=== PATIENT | male | born 1960 | race Caucasian/White ===

== ENCOUNTER 2020-03-24 08:33 | Inpatient (IN) ==
[2020-03-24] MEDS ORDERED: ALBUTEROL SULFATE/IPRATROPIUM 3 ML NEBU IH ONE ×2 (08:43→09:06)
[2020-03-24] MEDS ORDERED: METHYLPREDNISOLONE SOD SUCC/PF 40 MG/ML VIAL IV ONE (08:43)
[2020-03-24] MEDS ORDERED: ALBUTEROL SULFATE 5 MG/ML BTL IH ONE (09:00)
--- NOTE | 2020-03-24 09:01 | ERNOTE ---
Dyspnea - Date Date of Service: 03/24/20 - General Presenting Symptoms: difficulty of breathing Time Seen by Provider: 03/24/20 08:42 Source: patient, EMS Exam Limitations: clinical condition - He is too short of breath to answer questions. He refuses to answer most. - Immun/Allergies/Home Medications Allergies/Adverse Reactions: Allergies anti-thymocyte globulin, rabbit [lymphocyte immune globulin,rabbit] Allergy (Verified 03/24/20 09:01) Penicillins Allergy (Verified 03/24/20 09:01) Home Medications: HOME MEDICATIONS Acyclovir [Zovirax] 200 mg PO BID 03/24/20 [Last Taken Unknown] Albuterol Sulfate [Albuterol Sulfate 2.5 MG/0.5ML] 1 vial IH TID 03/24/20 [Last Taken Unknown] Azithromycin 250 mg PO MOWEFR 03/24/20 [Last Taken Unknown] Metoprolol Tartrate [Lopressor] 12.5 mg PO BID 03/24/20 [Last Taken Unknown] Omeprazole 20 mg PO BID 03/24/20 [Last Taken Unknown] Tacrolimus 1.5 mg PO QPM 03/24/20 [Last Taken Unknown] Tacrolimus 2 mg PO QAM 03/24/20 [Last Taken Unknown] predniSONE [Prednisone] 7.5 mg PO DAILY 03/24/20 [Last Taken Unknown] - History of Present Illness Narrative: This patient is a 59-year-old male who arrived by ambulance with shortness of breath. He has a history of lung transplant in 2011. He refuses to answer most questions He reportedly got worse a couple days ago. Today, he could not catch his breath at rest. He used a nebulizer this morning. He came in by ambulance. He did not get a treatment in route. His saturations were good. He denies fever or other cold symptoms. He denies chest pain. Review of Systems - Narrative Narrative: He gets angry and refuses to answer questions but the ones he does answer are negative. - Review of Systems All Other Systems: All systems neg except as marked Medical History (Last Reviewed 03/24/20 @ 09:07 by Scott Hong MD) Lung fibrosis Surgical History: Surgical History (Last Reviewed 03/24/20 @ 09:07 by Scott Hong MD) Lung transplant recipient Family History: Family History (Last Reviewed 03/24/20 @ 09:07 by Scott Hong MD) Other No pertinent family history Social History: (Last Reviewed 03/24/20 @ 09:07 by Scott Hong MD) Tobacco: Smoking Status: Former smoker Alcohol: alcohol intake: former Substance Use: substance use type: does not use Physical Exam - Physical Exam General Appearance: Present: alert, severe distress - He appears to be air hungry and short of breath., anxious, thin Head Exam: Present: normal inspection, no evidence of injury Eye Exam: Normal inspection: bilateral Ears, Nose, Throat: Present: normal ENT inspection Neck: Present: normal inspection, supple Respiratory: Present: respiratory distress, decreased breath sounds, wheezing Cardiovascular/Chest: Present: regular rate, rhythm - Difficult to hear over his breathing noises. Gastrointestinal/Abdominal: Present: normal bowel sounds, nontender, nondistended, soft, no organomegaly Back Exam: Present: normal inspection, normal range of motion Extremity Exam: Present: normal inspection, non-tender, no edema Neurological Exam: Present: alert, normal mood/affect - Angry, but appropriate for the situation. Skin Exam: Present: normal color, warm/dry Progress - Date and Time Seen: Date and Time: 03/24/20 09:11 The patient arrived and appeared to be quite irritable. He was wheezing. After a short time, he became agitated and appeared to be headed for respiratory arrest. He had already made clear that he did not want intubated. He was given breathing treatments and improved. 03/24/20 12:06 The patient prefers being at this hospital, if able I spoke with Dr. Aaron and then I spoke with Dr. Cobos at the [facility]. She felt that he could be treated here. She suggested getting another sputum culture and covering him for his recent pneumonia. I spoke with Dr. Aaron again he accepted the patient. 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 He has not a candidate for intubation. - Results and Orders Patient's Lab Results:: I have reviewed the patient's lab results. Results and Orders: Laboratory Tests 03/24/20 03/24/20 03/24/20 09:04 09:04 09:04 WBC 11.3 H RBC 5.40 Hgb 16.6 Hct 51.8 MCV 95.9 MCH 30.7 MCHC 32.0 RDW 15.6 H Plt Count 206 MPV 9.8 Immature Gran % (Auto) 0.50 H Immature Gran # (Auto) 0.06 H Neutrophils % 69.9 Lymphocytes % 10.8 L Monocytes % 11.8 H Eosinophils % 6.3 H Basophils % 0.7 Nucleated RBC % 0.0 Neutrophils # 7.9 H Lymphocytes # 1.22 L Monocytes # 1.3 H Eosinophils # 0.7 Absolute Basophils 0.1 pCO2 pO2 HCO3 Total CO2 Base Excess ABG pH ABG O2 Sat (Measured) Sodium 138 Plasma Sodium 138 Potassium 4.1 Chloride 103 Carbon Dioxide 27.1 Anion Gap 12.0 BUN 43 H Creatinine 2.18 H Est GFR (Non-Af Amer) 33 L BUN/Creatinine Ratio 19.7 Random Glucose 106 Calcium 10.1 Calcium Adj for Albumin 10.3 H Total Bilirubin 0.5 AST 23 ALT 18 L Alkaline Phosphatase 91 Troponin I Less than 0.017 Total Protein 8.6 H Albumin 3.4 SARS-CoV-2 (PCR) Not detected 03/24/20 10:07 WBC RBC Hgb Hct MCV MCH MCHC RDW Plt Count MPV Immature Gran % (Auto) Immature Gran # (Auto) Neutrophils % Lymphocytes % Monocytes % Eosinophils % Basophils % Nucleated RBC % Neutrophils # Lymphocytes # Monocytes # Eosinophils # Absolute Basophils pCO2 47.6 pO2 89.0 HCO3 24.9 Total CO2 26.4 H Base Excess -1.4 ABG pH 7.34 L ABG O2 Sat (Measured) 96.2 Sodium Plasma Sodium Potassium Chloride Carbon Dioxide Anion Gap BUN Creatinine Est GFR (Non-Af Amer) BUN/Creatinine Ratio Random Glucose Calcium Calcium Adj for Albumin Total Bilirubin AST ALT Alkaline Phosphatase Troponin I Total Protein Albumin SARS-CoV-2 (PCR) - Vital Signs Patient's Vital Signs:: I have reviewed the patient's vital signs. 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
[2020-03-24] MEDS ORDERED: ALBUTEROL SULFATE 2.5 MG/0.5 ML VIAL.NEB IH ONE (09:09)
[2020-03-24 09:17] LABS: Hematocrit 51.8 % (42.0-52.0); Hemoglobin 16.6 gm/dL (13.5-18.0); Mean Cell Volume 95.9 fl (78-100); Mean Corpuscular Hemoglobin 30.7 pg (27-31); Mean Platelet Volume 9.8 fl (8-11.3); Neutrophil # 7.9 K/mm3 (1.3-6.0); Neutrophil % 69.9 % (42-75.0); Platelet Count 206 K/mm3 (150-450); Red Cell Distribution Width 15.6 % (11.5-14.0); White Blood Count 11.3 K/mm3 (4.0-10.5)
[2020-03-24 09:37] LABS: ALT 18 U/L (19-67); AST 23 U/L (0-48); Albumin * 3.4 gm/dl (3.4-5.0); Alkaline Phosphatase * 91 U/L (50-170); BUN/Creatinine Ratio 19.7 (9.0-21.6); Bilirubin, Total 0.5 mg/dL (0.0-1.1); Blood Urea Nitrogen 43 mg/dL (6-23); Ca. Corrected For Albumin 10.3 mg/dL (8.4-10.2); Calcium * 10.1 mg/dL (7.9-10.9); Carbon Dioxide 27.1 mmol/L (24-32.6); Chloride 103 mmol/L (97-106); Glucose * 106 mg/dL (70-110); Potassium 4.1 mmol/L (3.4-4.6); Sodium 138 mmol/L (132-142); Total Protein 8.6 gm/dL (6.2-8.2)
[2020-03-24 09:42] LABS: Troponin I Less than 0.017 ng/mL (0.00-0.10)
[2020-03-24] MEDS ORDERED: CEFEPIME HCL 1 GM/100 ML BAG IV ONE ×2 (10:24→10:31)
[2020-03-24] MEDS ORDERED: AZITHROMYCIN 250 MG TABLET PO ONE (10:24)
[2020-03-24] MEDS ORDERED: LEVOFLOXACIN IN DEXTROSE 5 % 750 MG/150 ML BAG IV ONE (11:57)
[2020-03-24] MEDS ORDERED: ACETAMINOPHEN 500 MG TABLET PO PRN (14:24)
[2020-03-24] MEDS ORDERED: FLUOCINONIDE 15 APPL TUBE TP PRN (14:24)
[2020-03-24] MEDS ORDERED: SODIUM CHLORIDE IJ SCH (14:30)
--- NOTE | 2020-03-24 14:48 | HP ---
Chief Complaint - Chief Complaint Date of Service: 03/24/20 Time of Service: 14:15 Chief Complaint: Cough with shortness of breath History of Present Illness: Tod Clinton is a nearly 61-year-old male patient who was admitted to the [facility] on March 08 and discharged on March 16. He is a bilateral lung transplant for idiopathic pulmonary fibrosis which occurred on 11/14/2011. He was admitted there for complications of lung transplant, airway infection, and pneumonia. Starting in early February is when he began feeling poorly with the main symptoms being dyspnea and increasing MROGAN. 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 He also has chronic cytomegalic virus. His bronchiolitis obliterans is end-stage and he is not an intubation candidate. Medical History (Last Reviewed 03/24/20 @ 13:35 by Heath Soriano RN) History of COPD Hx of gastroesophageal reflux (GERD) Hx of primary hypertension Lung fibrosis Surgical History: Surgical History (Last Reviewed 03/24/20 @ 13:35 by Heath Soriano RN) Lung transplant recipient Family History: Family History (Last Reviewed 03/24/20 @ 13:35 by Heath Soriano RN) Other No pertinent family history Social History: (Last Reviewed 03/24/20 @ 13:35 by Heath Soriano RN) Tobacco: Smoking Status: Former smoker Alcohol: alcohol intake: former Substance Use: substance use type: does not use Review Of Systems (GEN) - Review of Systems Generalized/Overall Review: Present: Weakness EENTM: Present: No Symptoms Reported Respiratory: Present: Cough, Shortness of Breath, Wheezing Cardiac: Present: No Symptoms Reported Abdominal: Present: No Symptoms Reported Genitourinary: Present: No Symptoms Reported Musculoskeletal: Present: No Symptoms Reported Neurological: Present: No Symptoms Reported Skin: Present: No Symptoms Reported Endocrine: Present: No Symptoms Reported Misc: All systems neg except as marked Immunizations: IMMUNIZATION HX Immunizations Up to Date Yes History of Influenza Vaccine Yes Hx Pneumococcal Vaccination Yes Allergies/Adverse Reactions: Allergies Allergy/AdvReac Type Severity Reaction Status Date / Time anti-thymocyte globulin, Allergy Verified 03/24/20 09:01 rabbit [lymphocyte immune globulin,rabbit] Penicillins Allergy Verified 03/24/20 09:01 Home Medications: HOME MEDICATIONS 0.9 % Sodium Chloride [Sodium Chloride 0.9%] 3 ml IJ Q12H 03/24/20 [Last Taken Unknown] Acetaminophen [Tylenol] 1,000 mg PO Q6H PRN 03/24/20 [Last Taken Unknown] Acyclovir [Zovirax] 200 mg PO BID 03/24/20 [Last Taken Unknown] Albuterol Sulfate [Albuterol Sulfate 2.5 MG/0.5ML] 1 vial IH BID 03/24/20 [Last Taken Unknown] Albuterol Sulfate [Albuterol Sulfate 2.5 MG/0.5ML] 1 vial IH QID PRN 03/24/20 [Last Taken Unknown] Azithromycin 250 mg PO MOWEFR 03/24/20 [Last Taken Unknown] Colistin (Colistimethate Na) [Colistimethate] 150 mg IJ Q12H 03/24/20 [Last Taken Unknown] Ferrous Gluconate [Iron] 65 mg PO DAILY 03/24/20 [Last Taken Unknown] Fluocinonide [Lidex 0.05%] 1 appl TP QPM PRN 03/24/20 [Last Taken Unknown] Fluticasone Propion/Salmeterol [Fluticasone-Salmeterol 500-50] 1 ea IH Q12H 03/24/20 [Last Taken Unknown] Immune Globul G/Gly/Iga Avg 46 [Gamunex-C] 35 gm IV Q30D 03/24/20 [Last Taken 03/21/20] Ketoconazole [Nizoral Shampoo] 1 appl TP DAILY 03/24/20 [Last Taken Unknown] Metoprolol Tartrate [Lopressor] 12.5 mg PO BID 03/24/20 [Last Taken Unknown] Omeprazole 20 mg PO BID 03/24/20 [Last Taken Unknown] Pentamidine Isethionate [Nebupent] 300 mg IH Q30D 03/24/20 [Last Taken Unknown] Polyethylene Glycol 3350 [Miralax] 17 gm PO BID 03/24/20 [Last Taken Unknown] Tacrolimus 1 mg PO QPM 03/24/20 [Last Taken Unknown] Tacrolimus 2 mg PO QAM 03/24/20 [Last Taken Unknown] predniSONE [Prednisone] 5 mg PO DAILY 03/24/20 [Last Taken Unknown] Exam - Exam Vital Signs: Vital Signs - Last Taken Temp 36.5 C 03/24/20 13:18 Pulse 92 12/03/20 13:18 Resp 26 H 03/24/20 13:18 BP 128/82 03/24/20 13:18 Pulse Ox 98 03/24/20 13:18 Constitutional: Present: Alert, Oriented x3, Cooperative, Well developed, Well nourished, Mild distress ENT Exam: Present: normal ENT inspection, hearing grossly normal, pharynx normal, TMs normal Eye Exam: bilateral eye: normal inspection, PERRL, EOMI Neck: Present: non-tender, full range of motion, supple, normal inspection Back Exam: Present: normal inspection, no CVA tenderness, no vertebral tenderness Breasts: Present: Exam deferred Respiratory: Present: chest non-tender, decreased breath sounds, No wheezing Cardiovascular/Chest: Present: normal peripheral pulses, no chest tenderness, no edema, no gallop, no JVD, no murmur, tachycardia Peripheral Pulses: carotid (R): 2+, carotid (L): 2+, radial (R): 2+, radial (L): 2+ Abdomen: Present: Normal bowel sounds, soft, nontender, nondistended, no rebound tenderness, no hepatospenomegaly, no masses /Rectal: Present: Exam deferred Extremity: Present: normal range of motion, non-tender, normal inspection, no pedal edema, no calf tenderness, normal capillary refill Skin Exam: Present: normal color, warm/dry, no cyanosis Lymphatic: Present: no adenopathy Neurologic: Present: 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 nml as tested, normal cerebellar test, no motor/sensory deficits, alert, normal mood/affect, oriented x 3 Appearance: Present: appropriate appearance, appropriate insight, neat, no memory impairment Eye contact: Present: cooperative, good eye contact, normal speech, avoids eye contact Thoughts: Present: normal thought pattern, no apparent hallucination Diagnostic Studies: Abnormal Lab Results 03/24/20 03/24/20 03/24/20 Range/Units 09:04 09:04 10:07 WBC 11.3 H (4.0-10.5) K/mm3 RDW 15.6 H (11.5-14.0) % Immature Gran % (Auto) 0.50 H (0.001-0.429) % Immature Gran # (Auto) 0.06 H (0.000-0.0310) K/mm3 Lymphocytes % 10.8 L (20-51) % Monocytes % 11.8 H (0.0-9) % Eosinophils % 6.3 H (0.0-3.0) % Neutrophils # 7.9 H (1.3-6.0) K/mm3 Lymphocytes # 1.22 L (1.5-3.5) k/mm3 Monocytes # 1.3 H (0.0-1.0) k/mm3 Total CO2 26.4 H (19.0-24.0) mmol/L ABG pH 7.34 L (7.35-7.45) BUN 43 H (6-23) mg/dL Creatinine 2.18 H (0.4-1.4) mg/dL Est GFR (Non-Af Amer) 33 L (60-130) mL/min Calcium Adj for Albumin 10.3 H (8.4-10.2) mg/dL ALT 18 L (19-67) U/L Total Protein 8.6 H (6.2-8.2) gm/dL Laboratory Results WBC 11.3 K/mm3 (4.0-10.5) H 03/24/20 09:04 RBC 5.40 M/mm3 (4.7-6.0) 03/24/20 09:04 Hgb 16.6 gm/dL (13.5-18.0) 03/24/20 09:04 Hct 51.8 % (42.0-52.0) 03/24/20 09:04 MCV 95.9 fl (78-100) 03/24/20 09:04 MCH 30.7 pg (27-31) 03/24/20 09:04 MCHC 32.0 g/dl (32-36) 03/24/20 09:04 RDW 15.6 % (11.5-14.0) H 03/24/20 09:04 Plt Count 206 K/mm3 (150-450) 03/24/20 09:04 MPV 9.8 fl (8-11.3) 03/24/20 09:04 Immature Gran % (Auto) 0.50 % (0.001-0.429) H 03/24/20 09:04 Immature Gran # (Auto) 0.06 K/mm3 (0.000-0.0310) H 03/24/20 09:04 Neutrophils % 69.9 % (42-75.0) 03/24/20 09:04 Lymphocytes % 10.8 % (20-51) L 03/24/20 09:04 Monocytes % 11.8 % (0.0-9) H 03/24/20 09:04 Eosinophils % 6.3 % (0.0-3.0) H 03/24/20 09:04 Basophils % 0.7 % (0.0-1.0) 03/24/20 09:04 Nucleated RBC % 0.0 k/mm3 (0-1) 03/24/20 09:04 Neutrophils # 7.9 K/mm3 (1.3-6.0) H 03/24/20 09:04 Lymphocytes # 1.22 k/mm3 (1.5-3.5) L 03/24/20 09:04 Monocytes # 1.3 k/mm3 (0.0-1.0) H 03/24/20 09:04 Eosinophils # 0.7 k/mm3 (0.0-0.7) 03/24/20 09:04 Absolute Basophils 0.1 k/mm3 (0.0-0.1) 03/24/20 09:04 pCO2 47.6 mmHg (35.0-48.0) 03/24/20 10:07 pO2 89.0 mmHg (83.0-108.0) 03/24/20 10:07 HCO3 24.9 mmol/L (21.0-28.0) 03/24/20 10:07 Total CO2 26.4 mmol/L (19.0-24.0) H 03/24/20 10:07 Base Excess -1.4 mmol/L (-2.0-3.0) 03/24/20 10:07 ABG pH 7.34 (7.35-7.45) L 03/24/20 10:07 ABG O2 Sat (Measured) 96.2 % (94.0-98.0) 03/24/20 10:07 Sodium 138 mmol/L (132-142) 03/24/20 09:04 Plasma Sodium 138 mmol/L (130-142) 03/24/20 09:04 Potassium 4.1 mmol/L (3.4-4.6) 03/24/20 09:04 Chloride 103 mmol/L (97-106) 03/24/20 09:04 Carbon Dioxide 27.1 mmol/L (24-32.6) 03/24/20 09:04 Anion Gap 12.0 mmol/L (6.8-13.8) 03/24/20 09:04 BUN 43 mg/dL (6-23) H 03/24/20 09:04 Creatinine 2.18 mg/dL (0.4-1.4) H 03/24/20 09:04 Est GFR (Non-Af Amer) 33 mL/min (60-130) L 03/24/20 09:04 BUN/Creatinine Ratio 19.7 (9.0-21.6) 03/24/20 09:04 Random Glucose 106 mg/dL (70-110) 03/24/20 09:04 Lactic Acid, Venous 1.2 mmol/L (0.4-2.0) 03/24/20 09:55 Calcium 10.1 mg/dL (7.9-10.9) 03/24/20 09:04 Calcium Adj for Albumin 10.3 mg/dL (8.4-10.2) H 03/24/20 09:04 Total Bilirubin 0.5 mg/dL (0.0-1.1) 03/24/20 09:04 AST 23 U/L (0-48) 03/24/20 09:04 ALT 18 U/L (19-67) L 03/24/20 09:04 Alkaline Phosphatase 91 U/L (50-170) 03/24/20 09:04 Troponin I Less than 0.017 ng/mL (0.00-0.10) 03/24/20 09:04 Total Protein 8.6 gm/dL (6.2-8.2) H 03/24/20 09:04 Albumin 3.4 gm/dl (3.4-5.0) 03/24/20 09:04 SARS-CoV-2 (PCR) Not detected (NotDetected) 03/24/20 09:04
[2020-03-24] MEDS: FLUTICASONE PROPION/SALMETEROL 14 PUFF DISK.W.DEV IH SCH ×2 (15:33→20:24)
[2020-03-24] MEDS: ENOXAPARIN SODIUM 40 MG/0.4 ML SYRG SC SCH (15:33)
[2020-03-24] MEDS ORDERED: TACROLIMUS ANHYDROUS 0.5 MG CAPSULE PO SCH (17:00)
[2020-03-24] MEDS: DOXYCYCLINE HYCLATE 100 MG in DEXTROSE 5 % IN WATER 100 ML IV SCH ×2 (17:29)
[2020-03-24] MEDS: ALBUTEROL SULFATE 2.5 MG/0.5 ML VIAL.NEB IH SCH ×2 (17:50→18:06)
[2020-03-24] MEDS: PANTOPRAZOLE SODIUM 20 MG TABLET.DR PO SCH (20:24)
[2020-03-24] MEDS: TACROLIMUS ANHYDROUS 0.5 MG CAPSULE PO SCH (20:24)
[2020-03-24] MEDS: POLYETHYLENE GLYCOL 3350 17 GM PACKET PO SCH (20:25)
[2020-03-24] MEDS: ACYCLOVIR 200 MG CAPSULE PO SCH (20:25)
[2020-03-24] MEDS: METOPROLOL TARTRATE 25 MG TABLET PO SCH (20:25)
[2020-03-24] MEDS: CEFEPIME HCL 1 GM in DEXTROSE 5 % IN WATER 100 ML IV SCH ×2 (22:25)
[2020-03-25] MEDS: DOXYCYCLINE HYCLATE 100 MG in DEXTROSE 5 % IN WATER 100 ML IV SCH ×4 (04:46→17:06)
[2020-03-25] MEDS: ALBUTEROL SULFATE 2.5 MG/0.5 ML VIAL.NEB IH SCH ×4 (06:01→18:28)
[2020-03-25 06:59] LABS: Hemoglobin 15.2 gm/dL (13.5-18.0); Mean Cell Volume 93.8 fl (78-100); Mean Corpuscular Hemoglobin 30.3 pg (27-31); Mean Corpuscular Hgb Conc 32.3 g/dl (32-36); Mean Platelet Volume 9.4 fl (8-11.3); Neutrophil # 5.8 K/mm3 (1.3-6.0); Neutrophil % 84.3 % (42-75.0); Platelet Count 202 K/mm3 (150-450); Red Blood Count 5.01 M/mm3 (4.7-6.0); Red Cell Distribution Width 15.1 % (11.5-14.0); White Blood Count 6.9 K/mm3 (4.0-10.5)
[2020-03-25 07:06] LABS: Albumin * 3.1 gm/dl (3.4-5.0); BUN/Creatinine Ratio 23.8 (9.0-21.6); Bilirubin, Total 0.4 mg/dL (0.0-1.1); Ca. Corrected For Albumin 9.9 mg/dL (8.4-10.2); Calcium * 9.5 mg/dL (7.9-10.9); Carbon Dioxide 24.2 mmol/L (24-32.6); Potassium 4.2 mmol/L (3.4-4.6); Total Protein 8.1 gm/dL (6.2-8.2)
[2020-03-25] MEDS: PANTOPRAZOLE SODIUM 20 MG TABLET.DR PO SCH ×2 (07:16→20:15)
--- NOTE | 2020-03-25 08:55 | PN ---
Subjective - Date and Time Seen Date: 03/25/20 Time: 07:30 Objective - Review of Systems Generalized/Overall Review: Reports: No Symptoms Reported EENTM: Reports: No Symptoms Reported Respiratory: Reports: Cough, Shortness of Breath - With minor exertion. He has been weaned off of his oxygen through much of the night but has 2 L nasal cannula O2 on this morning due to dyspnea. Cardiac: Reports: No Symptoms Reported Abdominal: Reports: No Symptoms Reported Genitourinary Symptoms: Reports: No Symptoms Reported Musculoskeletal Complaints: Reports: No Symptoms Reported Neurological: Reports: No Symptoms Reported Skin: Reports: No Symptoms Reported Endocrine: Reports: No Symptoms Reported - Vitals Vitals: Last Vital Signs Temp 36.5 C 03/25/20 07:11 Pulse 94 03/25/20 07:11 Resp 22 H 03/25/20 07:11 BP 131/85 03/25/20 07:11 Pulse Ox 98 03/25/20 07:11 - Abnormal Lab Findings Abnormal Lab Findings: Abnormal Lab Results 03/24/20 03/24/20 03/24/20 Range/Units 09:04 09:04 10:07 WBC 11.3 H (4.0-10.5) K/mm3 RDW 15.6 H (11.5-14.0) % Immature Gran % (Auto) 0.50 H (0.001-0.429) % Immature Gran # (Auto) 0.06 H (0.000-0.0310) K/mm3 Neutrophils % (42-75.0) % Lymphocytes % 10.8 L (20-51) % Monocytes % 11.8 H (0.0-9) % Eosinophils % 6.3 H (0.0-3.0) % Neutrophils # 7.9 H (1.3-6.0) K/mm3 Lymphocytes # 1.22 L (1.5-3.5) k/mm3 Monocytes # 1.3 H (0.0-1.0) k/mm3 Total CO2 26.4 H (19.0-24.0) mmol/L ABG pH 7.34 L (7.35-7.45) Anion Gap (6.8-13.8) mmol/L BUN 43 H (6-23) mg/dL Creatinine 2.18 H (0.4-1.4) mg/dL Est GFR (Non-Af Amer) 33 L (60-130) mL/min BUN/Creatinine Ratio (9.0-21.6) Random Glucose (70-110) mg/dL Calcium Adj for Albumin 10.3 H (8.4-10.2) mg/dL ALT 18 L (19-67) U/L Total Protein 8.6 H (6.2-8.2) gm/dL Albumin (3.4-5.0) gm/dl 03/25/20 03/25/20 Range/Units 06:30 06:30 WBC (4.0-10.5) K/mm3 RDW 15.1 H (11.5-14.0) % Immature Gran % (Auto) 0.60 H (0.001-0.429) % Immature Gran # (Auto) 0.04 H (0.000-0.0310) K/mm3 Neutrophils % 84.3 H (42-75.0) % Lymphocytes % 6.5 L (20-51) % Monocytes % (0.0-9) % Eosinophils % (0.0-3.0) % Neutrophils # (1.3-6.0) K/mm3 Lymphocytes # 0.45 L (1.5-3.5) k/mm3 Monocytes # (0.0-1.0) k/mm3 Total CO2 (19.0-24.0) mmol/L ABG pH (7.35-7.45) Anion Gap 15.0 H (6.8-13.8) mmol/L BUN 50 H (6-23) mg/dL Creatinine 2.10 H (0.4-1.4) mg/dL Est GFR (Non-Af Amer) 34 L (60-130) mL/min BUN/Creatinine Ratio 23.8 H (9.0-21.6) Random Glucose 132 H (70-110) mg/dL Calcium Adj for Albumin (8.4-10.2) mg/dL ALT 16 L (19-67) U/L Total Protein (6.2-8.2) gm/dL Albumin 3.1 L (3.4-5.0) gm/dl - EKG/Xray Findings XRAY: chest Interpretation: Reviewed by me - Exam Constitutional: Present: Alert, Oriented x3, Cooperative, Well developed, Well nourished ENT Exam: Present: normal ENT inspection, hearing grossly normal, pharynx normal, TMs normal Neck: Present: non-tender, full range of motion, supple Breasts: Present: Exam deferred, Nontender Respiratory: Present: chest non-tender, rhonchi, No wheezing Cardiovascular/Chest: Present: normal peripheral pulses, regular rate, rhythm, no chest tenderness, no edema, no gallop, no JVD, no murmur, no rub Abdomen: Present: Normal bowel sounds, soft, nontender, nondistended, no rebound tenderness, no hepatospenomegaly, no masses /Rectal: Present: Exam deferred Extremity: Present: normal range of motion Skin Exam: Present: normal color, warm/dry, no cyanosis Lymphatic: Present: no adenopathy Neurologic: Present: 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 He states he does not want to be discharged until the pneumonia is completely cleared but most likely he will need to go home and finish on p.o. antibiotics.
[2020-03-25] MEDS: FERROUS SULFATE 325 MG TABLET PO SCH (09:50)
[2020-03-25] MEDS: METOPROLOL TARTRATE 25 MG TABLET PO SCH ×2 (09:51→20:12)
[2020-03-25] MEDS: POLYETHYLENE GLYCOL 3350 17 GM PACKET PO SCH ×2 (09:52→20:13)
[2020-03-25] MEDS: predniSONE 5 MG TABLET PO SCH (09:52)
[2020-03-25] MEDS: ACYCLOVIR 200 MG CAPSULE PO SCH ×2 (09:53→20:16)
[2020-03-25] MEDS: TACROLIMUS ANHYDROUS 0.5 MG CAPSULE PO SCH ×2 (09:53→20:15)
[2020-03-25] MEDS ORDERED: RACEPINEPHRINE HCL 0.5 ML VIAL IH ONE (11:00)
[2020-03-25] MEDS: CEFEPIME HCL 1 GM in DEXTROSE 5 % IN WATER 100 ML IV SCH ×4 (11:29→23:23)
[2020-03-25] MEDS: KETOCONAZOLE APPL TP SCH (13:55)
[2020-03-25] MEDS: ENOXAPARIN SODIUM 40 MG/0.4 ML SYRG SC SCH (14:46)
[2020-03-25] MEDS: FLUTICASONE PROPION/SALMETEROL 14 PUFF DISK.W.DEV IH SCH ×2 (17:24→20:11)
[2020-03-26] MEDS: DOXYCYCLINE HYCLATE 100 MG in DEXTROSE 5 % IN WATER 100 ML IV SCH ×4 (05:10→16:30)
[2020-03-26] MEDS: ALBUTEROL SULFATE 2.5 MG/0.5 ML VIAL.NEB IH SCH ×4 (06:24→20:02)
[2020-03-26 06:57] LABS: Hematocrit 49.1 % (42.0-52.0); Hemoglobin 15.9 gm/dL (13.5-18.0); Mean Cell Volume 94.1 fl (78-100); Mean Corpuscular Hemoglobin 30.5 pg (27-31); Mean Corpuscular Hgb Conc 32.4 g/dl (32-36); Mean Platelet Volume 10.4 fl (8-11.3); Neutrophil # 6.4 K/mm3 (1.3-6.0); Neutrophil % 79.2 % (42-75.0); Platelet Count 153 K/mm3 (150-450); Red Blood Count 5.22 M/mm3 (4.7-6.0); Red Cell Distribution Width 15.5 % (11.5-14.0); White Blood Count 8.1 K/mm3 (4.0-10.5)
[2020-03-26 07:02] LABS: Total Cells Counted 100
[2020-03-26 07:11] LABS: Albumin * 3.2 gm/dl (3.4-5.0); Anion Gap 13.3 mmol/L (6.8-13.8); BUN/Creatinine Ratio 24.3 (9.0-21.6); Bilirubin, Total 0.5 mg/dL (0.0-1.1); Ca. Corrected For Albumin 10.4 mg/dL (8.4-10.2); Calcium * 10.1 mg/dL (7.9-10.9); Carbon Dioxide 27.1 mmol/L (24-32.6); Potassium 4.4 mmol/L (3.4-4.6); Total Protein 8.1 gm/dL (6.2-8.2)
[2020-03-26] MEDS: PANTOPRAZOLE SODIUM 20 MG TABLET.DR PO SCH ×2 (07:22→20:39)
[2020-03-26 08:33] LABS: Eosinophil 3 % (0-3); Lymphocyte 12 % (20-51); Monocyte 9 % (0-9); Neutrophil 76 % (42-75); Neutrophil # 6.2 K/mm3 (1.3-6.0); Platelet Estimate Normal (NORMAL); RBC Morphology Normal (NORMAL)
[2020-03-26] MEDS: FLUTICASONE PROPION/SALMETEROL 14 PUFF DISK.W.DEV IH SCH ×2 (08:34→20:36)
[2020-03-26] MEDS: METOPROLOL TARTRATE 25 MG TABLET PO SCH ×2 (08:35→20:37)
[2020-03-26] MEDS: FERROUS SULFATE 325 MG TABLET PO SCH (08:35)
[2020-03-26] MEDS: predniSONE 5 MG TABLET PO SCH (08:36)
[2020-03-26] MEDS: KETOCONAZOLE APPL TP SCH (08:36)
[2020-03-26] MEDS: POLYETHYLENE GLYCOL 3350 17 GM PACKET PO SCH ×2 (08:36→20:35)
[2020-03-26] MEDS: TACROLIMUS ANHYDROUS 0.5 MG CAPSULE PO SCH ×2 (08:37→20:37)
[2020-03-26] MEDS: ACYCLOVIR 200 MG CAPSULE PO SCH ×2 (08:37→20:39)
[2020-03-26] MEDS: CEFEPIME HCL 1 GM in DEXTROSE 5 % IN WATER 100 ML IV SCH ×4 (10:45→23:06)
[2020-03-26] MEDS: ENOXAPARIN SODIUM 40 MG/0.4 ML SYRG SC SCH (14:07)
--- NOTE | 2020-03-26 14:37 | PN ---
Subjective - Date and Time Seen Date: 03/26/20 Time: 13:40 Subjective Narrative: Mr. Clinton says that he had a good restful night. He has slept without oxygen. His oxygen saturation has been near 100% on room air. However, he still gets very dyspneic quickly with minor exertion. He is reluctant to even walk to the bathroom and back because it takes him 15 minutes to recover. He is wanting to be transferred to the [facility] and I have started working on that but he would be a nonemergent admission and transfer and I doubt that there will be any room availability through the weekend. I reviewed his lab work with him which shows normalization of his white count, other labs essentially normal except for renal status. His vital signs are stable and he is afebrile. The chest x-ray this morning shows significant interval improvement. He lives alone at home and does not want to consider home oxygen. In fact he is refusing to use oxygen here even for short walking to the bathroom and back. He refuses oxygen test through ambulation today. He does appear to be responding well to cefepime and doxycycline. I will continue those until he gets transferred. Objective - Review of Systems Generalized/Overall Review: Reports: No Symptoms Reported, Weakness EENTM: Reports: No Symptoms Reported Respiratory: Reports: Shortness of Breath Cardiac: Reports: No Symptoms Reported Abdominal: Reports: No Symptoms Reported Genitourinary Symptoms: Reports: No Symptoms Reported Musculoskeletal Complaints: Reports: No Symptoms Reported Neurological: Reports: Emotional Problems - He seems to be fearful and anxious about his respiratory status. He is irritable and difficult to discuss his current status. Skin: Reports: No Symptoms Reported Endocrine: Reports: No Symptoms Reported - Vitals Vitals: Last Vital Signs Temp 36.3 C 03/26/20 10:43 Pulse 87 03/26/20 10:43 Resp 20 03/26/20 10:43 BP 126/98 H 03/26/20 10:43 Pulse Ox 100 03/26/20 10:43 - Abnormal Lab Findings Abnormal Lab Findings: Abnormal Lab Results 03/26/20 03/26/20 Range/Units 06:45 06:45 RDW 15.5 H (11.5-14.0) % Neutrophils % 79.2 H (42-75.0) % Neutrophils % (Manual) 76 H (42-75) % Lymphocytes % 8.6 L (20-51) % Lymphocytes % (Manual) 12 L (20-51) % Monocytes % 9.7 H (0.0-9) % Neutrophils # 6.4 H (1.3-6.0) K/mm3 Neutrophils # (Manual) 6.2 H (1.3-6.0) K/mm3 Lymphocytes # 0.69 L (1.5-3.5) k/mm3 Lymphocytes # (Manual) 1.0 L (1.5-3.5) k/mm3 BUN 46 H (6-23) mg/dL Creatinine 1.89 H (0.4-1.4) mg/dL Est GFR (Non-Af Amer) 39 L (60-130) mL/min BUN/Creatinine Ratio 24.3 H (9.0-21.6) Calcium Adj for Albumin 10.4 H (8.4-10.2) mg/dL ALT 17 L (19-67) U/L Albumin 3.2 L (3.4-5.0) gm/dl - EKG/Xray Findings EKG read: Reviewed by me XRAY: chest Interpretation: Reviewed by me - Exam Constitutional: Present: Alert, Oriented x3, Cooperative, Well developed, Well nourished, No distress - Except when he is walking. ENT Exam: Present: normal ENT inspection Neck: Present: non-tender Breasts: Present: Exam deferred Respiratory: Present: chest non-tender, rhonchi Cardiovascular/Chest: Present: normal peripheral pulses, regular rate, rhythm, no chest tenderness, no edema, no gallop, no JVD, no murmur, no rub Abdomen: Present: Normal bowel sounds, soft, nontender, nondistended, no rebound tenderness, no hepatospenomegaly, no masses /Rectal: Present: Exam deferred, External genitalia normal Extremity: Present: normal range of motion, non-tender, normal inspection, no pedal edema, no calf tenderness, normal capillary refill Skin Exam: Present: normal color, warm/dry Lymphatic: Present: no adenopathy Neurologic: Present: mcat instructor II-XII nml as tested Appearance: Present: appropriate appearance Eye contact: Present: cooperative, good eye contact, normal speech Thoughts: Present: normal thought pattern, no apparent hallucination Assessment/Plan Plan Narrative: 1. Continue current therapy for now until or unless he gets transferred. He is refusing discharge. 2. Repeat lab tomorrow morning. 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
[2020-03-27] MEDS: DOXYCYCLINE HYCLATE 100 MG in DEXTROSE 5 % IN WATER 100 ML IV SCH ×4 (05:07→16:34)
[2020-03-27] MEDS: ALBUTEROL SULFATE 2.5 MG/0.5 ML VIAL.NEB IH SCH ×3 (06:11→15:04)
[2020-03-27] MEDS: PANTOPRAZOLE SODIUM 20 MG TABLET.DR PO SCH ×2 (06:25→21:01)
[2020-03-27] MEDS: METOPROLOL TARTRATE 25 MG TABLET PO SCH ×2 (09:30→20:59)
[2020-03-27] MEDS: FLUTICASONE PROPION/SALMETEROL 14 PUFF DISK.W.DEV IH SCH ×2 (09:30→20:59)
[2020-03-27] MEDS: FERROUS SULFATE 325 MG TABLET PO SCH (09:30)
[2020-03-27] MEDS: TACROLIMUS ANHYDROUS 0.5 MG CAPSULE PO SCH ×2 (09:30→20:59)
[2020-03-27] MEDS: POLYETHYLENE GLYCOL 3350 17 GM PACKET PO SCH ×2 (09:30→21:00)
[2020-03-27] MEDS: ACYCLOVIR 200 MG CAPSULE PO SCH ×2 (09:31→21:01)
[2020-03-27] MEDS: KETOCONAZOLE APPL TP SCH (09:31)
[2020-03-27] MEDS: predniSONE 5 MG TABLET PO SCH (09:31)
[2020-03-27] MEDS: CEFEPIME HCL 1 GM in DEXTROSE 5 % IN WATER 100 ML IV SCH ×4 (10:22→23:30)
--- NOTE | 2020-03-27 12:25 | PN ---
Subjective - Date and Time Seen Date: 03/27/20 Time: 11:45 Subjective Narrative: Sleeping and is less dyspneic and walking to the bathroom and back this morning. He is wanting to do a walking oxygen check this morning. I spoke with his developmental electronics assembler/transplant physician at the yesterday. She says that he has severe end-stage bronchiolitis obliterans and that is why he does not have any functional reserve. Bronchodilators will not help much either. She told me that she thought he would 2 years ago but that in spite of multiple admissions and lung infections he has survived at this point. 2 years ago he was placed on hospice but then went home in improved and so he was discharged from hospice. She suggested adding higher dose of prednisone to taper down and a low dose of morphine. He has done those before and they seem to help some. He has no new other problems or complaints today. Lab: The CBC has a normal white count hemoglobin hematocrit and platelet count. The differential is unremarkable. The chemistries show electrolytes are all nor mal. His EGFR has improved each day and is 39 today. Vital signs: He has been afebrile and normotensive. Heart rate has been normal and his respiratory rate is 14 and unlabored with an O2 sats of 99 to 100% on room air. Objective - Review of Systems Generalized/Overall Review: Reports: No Symptoms Reported EENTM: Reports: No Symptoms Reported Respiratory: Reports: Shortness of Breath - With exertion but improved from yesterday Cardiac: Reports: No Symptoms Reported Abdominal: Reports: No Symptoms Reported Genitourinary Symptoms: Reports: No Symptoms Reported Musculoskeletal Complaints: Reports: No Symptoms Reported Neurological: Reports: No Symptoms Reported Skin: Reports: No Symptoms Reported Endocrine: Reports: No Symptoms Reported - Vitals Vitals: Last Vital Signs Temp 36.7 C 03/27/20 10:20 Pulse 80 03/27/20 10:20 Resp 14 03/27/20 10:20 BP 127/77 03/27/20 10:20 Pulse Ox 100 03/27/20 10:20 - Exam Constitutional: Present: Alert, Oriented x3, Cooperative, Well developed, Well nourished, No distress ENT Exam: Present: normal ENT inspection, hearing grossly normal, pharynx normal, TMs normal Neck: Present: non-tender, full range of motion, supple, normal inspection, trachea midline Breasts: Present: Exam deferred Respiratory: Present: chest non-tender, lungs clear, normal breath sounds, no respiratory distress, no accessory muscle use - Unless dyspneic from exertion, respiratory distress - Only with exertion, decreased breath sounds, crackles, rhonchi, wheezing, expiration (prolonged) Cardiovascular/Chest: Present: normal peripheral pulses, regular rate, rhythm, no chest tenderness, no edema, no gallop, no JVD, no murmur, no rub Abdomen: Present: Normal bowel sounds, soft, nontender, no rebound tenderness, no hepatospenomegaly, no masses /Rectal: Present: Exam deferred Extremity: Present: normal range of motion, non-tender, normal inspection, no pedal edema, no calf tenderness, normal capillary refill Skin Exam: Present: normal color, warm/dry, no cyanosis Lymphatic: Present: no adenopathy Neurologic: Present: 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 He seems much less anxious. Appearance: Present: appropriate appearance, appropriate insight, neat Eye contact: Present: cooperative, good eye contact, normal speech Thoughts: Present: normal thought pattern, no apparent hallucination Assessment/Plan Plan Narrative: 1. Add morphine 2. Increase prednisone 3. Repeat morning lab and chest x-ray tomorrow 4. Anticipate discharge to home tomorrow. 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
[2020-03-27] MEDS: MORPHINE SULFATE 10 MG/0.5 ML SYRINGE PO SCH ×2 (13:41→18:35)
[2020-03-27] MEDS: predniSONE 20 MG TABLET PO SCH ×2 (13:42→20:59)
[2020-03-27] MEDS: ENOXAPARIN SODIUM 40 MG/0.4 ML SYRG SC SCH (13:43)
[2020-03-27] MEDS ORDERED: ALBUTEROL SULFATE 2.5 MG/0.5 ML VIAL.NEB IH PRN (15:03)
[2020-03-28] MEDS: MORPHINE SULFATE 10 MG/0.5 ML SYRINGE PO SCH ×3 (01:55→12:46)
[2020-03-28] MEDS: DOXYCYCLINE HYCLATE 100 MG in DEXTROSE 5 % IN WATER 100 ML IV SCH ×2 (04:49)
[2020-03-28 07:00] LABS: Mean Corpuscular Hemoglobin 30.4 pg (27-31); Mean Corpuscular Hgb Conc 32.7 g/dl (32-36); Mean Platelet Volume 9.8 fl (8-11.3); Neutrophil # 6.3 K/mm3 (1.3-6.0); Neutrophil % 92.3 % (42-75.0); Platelet Count 228 K/mm3 (150-450); Red Blood Count 5.27 M/mm3 (4.7-6.0); Red Cell Distribution Width 14.7 % (11.5-14.0); White Blood Count 6.9 K/mm3 (4.0-10.5)
[2020-03-28] MEDS: PANTOPRAZOLE SODIUM 20 MG TABLET.DR PO SCH (07:04)
[2020-03-28 07:12] LABS: Albumin * 3.1 gm/dl (3.4-5.0); Anion Gap 13.5 mmol/L (6.8-13.8); BUN/Creatinine Ratio 27.7 (9.0-21.6); Bilirubin, Total 0.5 mg/dL (0.0-1.1); Calcium * 9.6 mg/dL (7.9-10.9); Carbon Dioxide 24.4 mmol/L (24-32.6); Potassium 4.9 mmol/L (3.4-4.6)
[2020-03-28] MEDS: METOPROLOL TARTRATE 25 MG TABLET PO SCH (08:41)
[2020-03-28] MEDS: TACROLIMUS ANHYDROUS 0.5 MG CAPSULE PO SCH (08:42)
[2020-03-28] MEDS: POLYETHYLENE GLYCOL 3350 17 GM PACKET PO SCH (08:42)
[2020-03-28] MEDS: ACYCLOVIR 200 MG CAPSULE PO SCH (08:42)
[2020-03-28] MEDS: predniSONE 20 MG TABLET PO SCH (08:42)
[2020-03-28] MEDS: KETOCONAZOLE APPL TP SCH (08:42)
[2020-03-28] MEDS: FERROUS SULFATE 325 MG TABLET PO SCH (08:42)
[2020-03-28] MEDS: FLUTICASONE PROPION/SALMETEROL 14 PUFF DISK.W.DEV IH SCH (08:54)
--- NOTE | 2020-03-28 09:35 | DS ---
(1) Infection due to Stenotrophomonas maltophilia Problem: Acute (2) COPD exacerbation Problem: Acute (3) Bronchiolitis obliterans Problem: Acute (4) Lung transplant recipient Problem: Acute (5) MORGAN (dyspnea on exertion) Problem: Acute (6) Pneumothorax Problem: Suspected Qualifiers: Pneumothorax type: spontaneous, primary Qualified Code(s): J93.11 - Primary spontaneous pneumothorax Date of Discharge:: 03/28/20 Hospital Course: Tod Clinton is a 59-year-old male who had a lung transplant in 2011 and has end-stage bronchiolitis obliterans. He has advanced pulmonary fibrosis. He had been at the [facility] for 8 days and then was discharged to home on home inhaled antibiotics. He did not improve. He then presented here very short of breath. He was started on IV cefepime and doxycycline. He improved fairly quickly in terms of his oxygen saturations at rest but would become very dyspneic with minor exertion such as walking from his bed to the bathroom. This then improved on Saturday and was better again on Saturday. The initial chest x-ray showed multilobular infiltrates. Subsequent chest x-ray showed clearing of those. This morning's x-ray does not show any infiltrates but there is the appearance of a 5% right apical pneumothorax with extensive pulmonary fibrosis. Dr. Paul reports there is an est. 5% pneumothorax and recommended a CT scan which I ordered but was refused by Mr. Clinton. He states he will wait and get it done at the . He is now able to ambulate about the room without significant dyspnea. Before he was admitted we contacted the [facility] transplant team and his astrochemist and they stated that they did not have anything to offer him other than what we could do here and they were out of beds anyway so we admitted him here. I talked to his astrochemist again 2 days ago and got further history. At one point he had been on hospice and his astrochemist expected him to a couple years ago but he has survived to this point. His diagnosis for transplant had been cystic fibrosis. He was 51 at that time. His disposition is improved. His prognosis is guarded. Procedures Performed: none Results and Findings: Pending Mircobiology Results 03/24/20 09:55 Blood Blood Culture - Preliminary NO GROWTH AFTER 48 HOURS 03/24/20 09:04 Blood Blood Culture - Preliminary NO GROWTH AFTER 48 HOURS Lab Pending Results 03/24/20 09:04: WBC 11.3 H, RBC 5.40, Hgb 16.6, Hct 51.8, MCV 95.9, MCH 30.7, MCHC 32.0, RDW 15.6 H, Plt Count 206, MPV 9.8, Immature Gran % (Auto) 0.50 H, Immature Gran # (Auto) 0.06 H, Neutrophils % 69.9, Lymphocytes % 10.8 L, Monocytes % 11.8 H, Eosinophils % 6.3 H, Basophils % 0.7, Nucleated RBC % 0.0, Neutrophils # 7.9 H, Lymphocytes # 1.22 L, Monocytes # 1.3 H, Eosinophils # 0.7, Absolute Basophils 0.1 03/24/20 09:04: Sodium 138, Plasma Sodium 138, Potassium 4.1, Chloride 103, Carbon Dioxide 27.1, Anion Gap 12.0, BUN 43 H, Creatinine 2.18 H, Est GFR (Non- Af Amer) 33 L, BUN/Creatinine Ratio 19.7, Random Glucose 106, Calcium 10.1, Calcium Adj for Albumin 10.3 H, Total Bilirubin 0.5, AST 23, ALT 18 L, Alkaline Phosphatase 91, Troponin I Less than 0.017, Total Protein 8.6 H, Albumin 3.4 03/24/20 09:04: SARS-CoV-2 (PCR) Not detected 03/24/20 09:55: Lactic Acid, Venous 1.2 03/24/20 10:07: pCO2 47.6, pO2 89.0, HCO3 24.9, Total CO2 26.4 H, Base Excess -1.4, ABG pH 7.34 L, ABG O2 Sat (Measured) 96.2 03/25/20 06:30: WBC 6.9 D, RBC 5.01, Hgb 15.2, Hct 47.0, MCV 93.8, MCH 30.3, MCHC 32.3, RDW 15.1 H, Plt Count 202, MPV 9.4, Immature Gran % (Auto) 0.60 H, Immature Gran # (Auto) 0.04 H, Neutrophils % 84.3 H, Lymphocytes % 6.5 L, Monocytes % 8.4, Eosinophils % 0.1, Basophils % 0.1, Nucleated RBC % 0.0, Neutrophils # 5.8, Lymphocytes # 0.45 L, Monocytes # 0.6, Eosinophils # 0.0, Absolute Basophils 0.0 03/25/20 06:30: Sodium 140, Plasma Sodium 141, Potassium 4.2, Chloride 105, Carbon Dioxide 24.2, Anion Gap 15.0 H, BUN 50 H, Creatinine 2.10 H, Est GFR (Non-Af Amer) 34 L, BUN/Creatinine Ratio 23.8 H, Random Glucose 132 H, Calcium 9.5, Calcium Adj for Albumin 9.9, Total Bilirubin 0.4, AST 21, ALT 16 L, Alkaline Phosphatase 86, Total Protein 8.1, Albumin 3.1 L 03/26/20 06:45: WBC 8.1, RBC 5.22, Hgb 15.9, Hct 49.1, MCV 94.1, MCH 30.5, MCHC 32.4, RDW 15.5 H, Plt Count 153, MPV 10.4, Immature Gran % (Auto) 0.20, Immature Gran # (Auto) 0.02, Neutrophils % 79.2 H, Neutrophils % (Manual) 76 H, Lymphocytes % 8.6 L, Lymphocytes % (Manual) 12 L, Monocytes % 9.7 H, Monocytes % (Manual) 9, Eosinophils % 2.1, Eosinophils % (Manual) 3, Basophils % 0.2, Nucleated RBC % 0.0, Neutrophils # 6.4 H, Neutrophils # (Manual) 6.2 H, Lymphocytes # 0.69 L, Lymphocytes # (Manual) 1.0 L, Monocytes # 0.8, Monocytes # (Manual) 0.7, Eosinophils # 0.2, Eosinophils # (Manual) 0.2, Absolute Basophils 0.0, Platelet Estimate Normal, RBC Morphology Normal 03/26/20 06:45: Sodium 141, Plasma Sodium 141, Potassium 4.4, Chloride 105, Carbon Dioxide 27.1, Anion Gap 13.3, BUN 46 H, Creatinine 1.89 H, Est GFR (Non- Af Amer) 39 L, BUN/Creatinine Ratio 24.3 H, Random Glucose 104, Calcium 10.1, Calcium Adj for Albumin 10.4 H, Total Bilirubin 0.5, AST 24, ALT 17 L, Alkaline Phosphatase 79, Total Protein 8.1, Albumin 3.2 L 03/28/20 06:45: WBC 6.9, RBC 5.27, Hgb 16.0, Hct 49.0, MCV 93.0, MCH 30.4, MCHC 32.7, RDW 14.7 H, Plt Count 228, MPV 9.8, Immature Gran % (Auto) 0.70 H, Immature Gran # (Auto) 0.05 H, Neutrophils % 92.3 H, Lymphocytes % 4.5 L, Mo nocytes % 2.5, Eosinophils % 0.0, Basophils % 0.0, Nucleated RBC % 0.0, Neutrophils # 6.3 H, Lymphocytes # 0.31 L, Monocytes # 0.2, Eosinophils # 0.0, Absolute Basophils 0.0 03/28/20 06:45: Sodium 137, Plasma Sodium 137, Potassium 4.9 H, Chloride 104, Carbon Dioxide 24.4, Anion Gap 13.5, BUN 49 H, Creatinine 1.77 H, Est GFR (Non- Af Amer) 42 L, BUN/Creatinine Ratio 27.7 H, Random Glucose 130 H, Calcium 9.6, Calcium Adj for Albumin 10.0, Total Bilirubin 0.5, AST 21, ALT 19, Alkaline Phosphatase 86, Total Protein 8.0, Albumin 3.1 L Discharge Location: Home Disposition: Home self-care Condition: Serious Face to Face Encounter completed per [facility] Guidelines: No Discharge Activity: Activity as tolerated Discharge Diet: General/regular food Problem Oriented Discharge Instructions to Patient/Family: Chronic Obstructive Pulmonary Disease Exacerbation, [id number], Community-Acquired Pneumonia, Adult, [id number] Additional Patient Instructions (free text): Keep Pulmonary appointment at [facility] that you already have scheduled for 04/05/2020. Fax chart and discharge information to his Pulmonary DrYeni Villegas please. . Prescriptions (Any new or edited meds): Cefdinir 300 mg PO BID #18 cap Transmission Status: Received by [facility] Doxycycline Monohydrate 100 mg PO BID #18 tab Transmission Status: Received by [facility] Morphine Sulfate [Morphine Sulfate Conc. Oral Solution] 2.5 mg PO Q6H #60 ml Transmission Status: Received by [facility] Complete Home Medications List: Complete Home Medication List: 0.9 % Sodium Chloride [Sodium Chloride 0.9%] 3 ml IJ Q12H 03/24/20 Acetaminophen [Tylenol] 1,000 mg PO Q6H PRN 03/24/20 Acyclovir [Zovirax] 200 mg PO BID 03/24/20 Albuterol Sulfate [Albuterol Sulfate 2.5 MG/0.5ML] 1 vial IH BID 03/24/20 Albuterol Sulfate [Albuterol Sulfate 2.5 MG/0.5ML] 1 vial IH QID PRN 03/24/20 Azithromycin 250 mg PO MOWEFR 03/24/20 Colistin (Colistimethate Na) [Colistimethate] 150 mg IJ Q12H 03/24/20 Ferrous Gluconate [Iron] 65 mg PO DAILY 03/24/20 Fluocinonide [Lidex 0.05% Ointment] 1 appl TP QPM PRN 03/24/20 Fluticasone Propion/Salmeterol [Fluticasone-Salmeterol 500-50] 1 ea IH Q12H 03/24/20 Immune Globul G/Gly/Iga Avg 46 [Gamunex-C 10 Gram/100 ml Vial] 35 gm IV Q30D 03/24/20 Ketoconazole [Nizoral Shampoo] 1 appl TP DAILY 03/24/20 Metoprolol Tartrate [Lopressor] 12.5 mg PO BID 03/24/20 Omeprazole 20 mg PO BID 03/24/20 Pentamidine Isethionate [Nebupent] 300 mg IH Q30D 03/24/20 Polyethylene Glycol 3350 [Miralax] 17 gm PO BID 03/24/20 Tacrolimus 1 mg PO QPM 03/24/20 Tacrolimus 2 mg PO QAM 03/24/20 predniSONE [Prednisone] 5 mg PO DAILY 03/24/20 Cefdinir 300 mg PO BID #18 cap 03/28/20 Doxycycline Monohydrate 100 mg PO BID #18 tab 03/28/20 Morphine Sulfate [Morphine Sulfate Conc. Oral Solution] 2.5 mg PO Q6H #60 ml 03/28/20 predniSONE [Prednisone] 10 mg PO BID #30 tab 03/28/20
[2020-03-28] MEDS: CEFEPIME HCL 1 GM in DEXTROSE 5 % IN WATER 100 ML IV SCH ×2 (11:02)
[2020-03-28 12:44] VITALS: BP 162/103
[2020-04-07] MEDS ORDERED: PENTAMIDINE ISETHIONATE 300 MG IH SCH (09:00)
[2020-04-20] MEDS ORDERED: IGA AVG IV SCH (09:00)
[2020-04-20] MEDS ORDERED: IMMUNE GLOBUL IV SCH (09:00)
[2020-04-20] MEDS ORDERED: GLY IV SCH (09:00)
== END 2020-03-28 13:05 | disposition home or self-care (01) | DRG 205 ==
LOC: ER 08:33 → MS 12:14
PROVIDERS: ADMIT Family Medicine; ATTEND Family Medicine
DX: B96.89 Other specified bacterial agents as the cause of diseases classified elsewhere; J96.01 Acute respiratory failure with hypoxia; J44.1 Chronic obstructive pulmonary disease with (acute) exacerbation; B25.8 Other cytomegaloviral diseases; N18.32 Chronic kidney disease, stage 3b; I12.9 Hypertensive chronic kidney disease with stage 1 through stage 4 chronic kidney disease, or unspecified chronic kidney disease; J93.9 Pneumothorax, unspecified; J18.9 Pneumonia, unspecified organism; T86.812 Lung transplant infection